=== PATIENT | female | born 1975 | race Caucasian/White ===

== ENCOUNTER → 2018-02-08 08:37 | Outpatient (CLI) | payer OTHER, MEDICAID, SELFPAY ==
[2018-02-12 14:03] LABS: C.trachomatis RNA Not detected
[2018-02-12 14:04] LABS: N.gonorrhoeae RNA Not detected
== END ==
PROVIDERS: Visit Provider Physician Assistant
DX: N89.8 Other specified noninflammatory disorders of vagina (principal); Z11.3 Encounter for screening for infections with a predominantly sexual mode of transmission
CPT/HCPCS: 87210; 87491; 87591

== ENCOUNTER → 2018-05-16 09:12 | Outpatient (CLI) | payer OTHER, MEDICAID, SELFPAY ==
--- NOTE | 2018-05-16 | DI.MG.S_ITS ---
BILATERAL DIGITAL SCREENING MAMMOGRAM 3D/2D WITH CAD WITH AUGMENTATION: 05/16/2018 CLINICAL: Routine screening. No prior exams were available for comparison. The tissue of both breasts is extremely dense, which lowers the sensitivity of mammography. Current study was also evaluated with a Computer Aided Detection (CAD) system. There is an asymmetry with coarse calcifications in the right breast posterior depth superior region seen on the mediolateral oblique view only. No other significant masses, calcifications, or other findings are seen in either breast. IMPRESSION: INCOMPLETE: NEEDS ADDITIONAL IMAGING EVALUATION The asymmetry in the right breast is indeterminate. Additional views with possible ultrasound are recommended. This exam was interpreted at Station ID: [id number]. NOTE: For mammograms, a report in lay terms will be sent to the patient. Approximately 15% of breast malignancies will not be visualized mammographically. In the management of a palpable breast mass, a negative mammogram must not discourage biopsy of a clinically suspicious lesion. Electronically Signed By: Cheryl vincent/:05/30/2018 09:23:08 letter sent: Additional Imaging Needed ACR BI-RADS Category 0: Incomplete 3340F
== END ==
PROVIDERS: PCP Family Medicine; Visit Provider Family Medicine
DX: Z12.31 Encounter for screening mammogram for malignant neoplasm of breast (principal)
CPT/HCPCS: 77063; 77067

== ENCOUNTER → 2018-09-20 18:47 | Outpatient (ROUT) | payer OTHER, SELFPAY ==
[2018-09-20 20:20] LABS: Urine N gonorrhoeae NOT DETECTED
[2018-09-20 20:26] LABS: Urine Chlamydia NOT DETECTED
== END ==
PROVIDERS: PCP Family Medicine; Visit Provider Family Medicine
DX: Z00.00 Encounter for general adult medical examination without abnormal findings (principal)
CPT/HCPCS: 87491; 87591

== ENCOUNTER → 2018-09-25 08:42 | Outpatient (CLI) | payer OTHER, SELFPAY ==
[2018-09-25 09:21] LABS: Add Manual Diff / Slide Review NO; Basophils Absolute Auto 0 /uL (0-100); Basophils Percent Auto 0.4 % (0-2); Eosinophils Absolute Auto 100 /uL (0-450); Hematocrit 41.2 % (36-46); Lymphocytes Absolute Auto 2000 /uL (1100-4500); Lymphocytes Percent Auto 32.8 % (25-40); Mean Corpuscular Hemoglobin 32.1 PG (26-34); Mean Corpuscular Volume 94.4 fL (80-100); Monocytes Absolute Auto 600 /uL (0-900); Monocytes Percent Auto 10.3 % (3-14); Neutrophils Absolute Auto 3400 /uL (1500-7000); Neutrophils Percent Auto 54.5 % (50-75); Platelet Count 374 X10^3/uL (150-400); Red Blood Cell Count 4.36 X10^6/uL (4.0-5.2); Red Cell Distribution Width 13.1 % (11.6-14.8); White Blood Cell Count 6.2 X10^3/uL (4.5-11.0)
[2018-09-25 09:49] LABS: Alanine Aminotransferase 11 IU/L (9-52); Albumin 4.8 g/dL (3.5-5.0); Albumin Globulin Ratio 1.4 (1.0-2.8); Alkaline Phosphatase 52 U/L (38-126); Aspartate Aminotransferase 26 IU/L (14-36); BUN Creatinine Ratio 17.1 (6-22); Bilirubin Total 1.1 mg/dL (0.2-1.3); Blood Urea Nitrogen 12 mg/dL (7-17); Calcium 9.5 mg/dL (8.4-10.2); Carbon Dioxide 28 mmol/L (22-32); Chloride 102 mmol/L (98-107); Cholesterol 233 mg/dL (140-199); Estimated Glomerular Filt Rate > 60.0 mL/min (>60); Globulin 3.4 g/dL (1.7-4.1); Glucose 92 mg/dL (70-100); HDL Cholesterol 78 mg/dL (40-60); HEMOLYSIS < 15 (0-50); LDL Cholesterol Calculated 142 mg/dL (<100); Potassium 4.1 mmol/L (3.4-5.1); Sodium 141 mmol/L (137-145); Total Protein 8.2 g/dL (6.3-8.2); Triglycerides 65 mg/dL (35-150)
[2018-09-25 10:22] LABS: Thyroid Stimulating Hormone 2.02 uIU/mL (0.47-4.68)
[2018-09-25 10:28] LABS: HIV 1 and 2 Antibody NEGATIVE (NEGATIVE)
[2018-09-27 16:37] LABS: Hepatitis A Antibody IgM NONREACTIVE (NONREACTIVE); Hepatitis Acute Panel Interp 0.01; Hepatitis B Core Antibody IgM NONREACTIVE (NONREACTIVE); Hepatitis B Surface Antigen NONREACTIVE (NONREACTIVE); Hepatitis C Antibody NONREACTIVE
[2018-09-27 22:31] LABS: RPR Screen Nonreactive (Nonreactive)
== END ==
PROVIDERS: PCP Family Medicine; Visit Provider Family Medicine
DX: Z00.00 Encounter for general adult medical examination without abnormal findings (principal); F32.9 Major depressive disorder, single episode, unspecified; F41.9 Anxiety disorder, unspecified; Z20.2 Contact with and (suspected) exposure to infections with a predominantly sexual mode of transmission
CPT/HCPCS: 36415; 80053; 80061; 80074; 84443; 85025; 86592; 86703

== ENCOUNTER → 2020-01-13 16:11 | Outpatient (CLI) | payer BC, SELFPAY ==
--- NOTE | 2020-01-13 | DI.MG.S_ITS ---
BILATERAL DIGITAL SCREENING MAMMOGRAM 3D/2D WITH CAD WITH AUGMENTATION: 01/13/2020 CLINICAL: Routine screening. Comparison is made to exams dated: 05/16/2018 [facility] and 10/01/2015 mammogram - [facility]. The tissue of both breasts is extremely dense, which lowers the sensitivity of mammography. Current study was also evaluated with a Computer Aided Detection (CAD) system. Bilateral breast implants are stable and intact. No significant masses, calcifications, or other findings are seen in either breast. There has been no significant interval change. IMPRESSION: NEGATIVE There is no mammographic evidence of malignancy. A 1 year screening mammogram is recommended. This exam was interpreted at Station ID: [id number]. NOTE: For mammograms, a report in lay terms will be sent to the patient. Approximately 15% of breast malignancies will not be visualized mammographically. In the management of a palpable breast mass, a negative mammogram must not discourage biopsy of a clinically suspicious lesion. Electronically Signed By: Joy garcia/stephan:01/13/2020 16:56:08 letter sent: Normal Exam ACR BI-RADS Category 1: Negative [id number]
== END ==
PROVIDERS: PCP Family Medicine; Referring Provider Family Medicine; Visit Provider Family Medicine
DX: Z12.31 Encounter for screening mammogram for malignant neoplasm of breast (principal)
CPT/HCPCS: 77063; 77067

== ENCOUNTER → 2020-10-01 10:57 | Outpatient (CLI) | payer BC, SELFPAY ==
[2020-10-01 11:41] LABS: Add Manual Diff / Slide Review NO; Basophils Absolute Auto 0 /uL (0-100); Basophils Percent Auto 0.6 % (0-2); Eosinophils Absolute Auto 200 /uL (0-450); Eosinophils Percent Auto 3.5 % (2-4); Hematocrit 39.5 % (36-46); Hemoglobin 13.4 g/dL (12.0-16.0); Lymphocytes Absolute Auto 2200 /uL (1100-4500); Lymphocytes Percent Auto 30.9 % (25-40); Mean Corpuscular HGB Conc 33.9 % (30-36); Mean Corpuscular Hemoglobin 33.1 PG (26-34); Mean Corpuscular Volume 97.5 fL (80-100); Monocytes Absolute Auto 600 /uL (0-900); Monocytes Percent Auto 8.4 % (3-14); Neutrophils Absolute Auto 4000 /uL (1500-7000); Neutrophils Percent Auto 56.6 % (50-75); Platelet Count 315 X10^3/uL (150-400); Red Blood Cell Count 4.05 X10^6/uL (4.0-5.2); Red Cell Distribution Width 13.1 % (11.6-14.8); White Blood Cell Count 7.1 X10^3/uL (4.5-11.0)
[2020-10-01 12:01] LABS: Alanine Aminotransferase 14 IU/L (<35); Albumin 4.4 g/dL (3.5-5.0); Albumin Globulin Ratio 1.4 (1.0-2.8); Alkaline Phosphatase 56 U/L (38-126); Aspartate Aminotransferase 27 IU/L (14-36); Bilirubin Total 0.7 mg/dL (0.2-1.3); Blood Urea Nitrogen 13 mg/dL (7-17); Calcium 9.1 mg/dL (8.4-10.2); Carbon Dioxide 26 mmol/L (22-32); Chloride 106 mmol/L (98-107); Estimated Glomerular Filt Rate > 60.0 mL/min (>60); Globulin 3.1 g/dL (1.7-4.1); Glucose 104 mg/dL (70-100); HEMOLYSIS 44 (0-50); Potassium 4.1 mmol/L (3.4-5.1); Sodium 138 mmol/L (137-145); Total Protein 7.5 g/dL (6.3-8.2)
[2020-10-01 12:45] LABS: UR Morphine/Opiate cutoff 300 Negative (Negative); Ur Creatinine Normal (Normal); Ur Specific Gravity Normal (Normal); Urine Amphetamines Negative (Negative); Urine Barbiturates Negative (Negative); Urine Benzodiazepines Negative (Negative); Urine Cocaine Negative (Negative); Urine MDMA Negative (Negative); Urine Methadone Negative (Negative); Urine Methamphetamines Negative (Negative); Urine Oxycodone Negative (Negative); Urine Phencyclidine Negative (Negative); Urine Tetrahydrocannabinol Negative (Negative); Urine Tricyclic Antidepressant Negative (Negative); Urine pH Normal (Normal)
[2020-10-01 13:00] LABS: Thyroid Stimulating Hormone 1.43 uIU/mL (0.47-4.68)
== END ==
PROVIDERS: PCP Family Medicine; Referring Provider Registered Nurse; Visit Provider Registered Nurse
DX: F32.9 Major depressive disorder, single episode, unspecified (principal); F90.9 Attention-deficit hyperactivity disorder, unspecified type; Z79.899 Other long term (current) drug therapy
CPT/HCPCS: 36415; 80053; 80305; 84439; 84443; 85025

== ENCOUNTER → 2021-09-28 14:13 | Outpatient (CLI) | payer OTHER, SELFPAY ==
--- NOTE | 2021-09-28 | DI.MG.S_ITS ---
BILATERAL DIGITAL SCREENING MAMMOGRAM 3D/2D WITH CAD WITH AUGMENTATION: 09/28/2021 CLINICAL: Routine screening. Comparison is made to exams dated: 01/13/2020 mammogram, 05/16/2018 mammogram - [facility], and 10/01/2015 mammogram - [facility]. The tissue of both breasts is extremely dense, which lowers the sensitivity of mammography. Current study was also evaluated with a Computer Aided Detection (CAD) system. Bilateral breast implants are stable and intact. No significant masses, calcifications, or other findings are seen in either breast. There has been no significant interval change. IMPRESSION: NEGATIVE There is no mammographic evidence of malignancy. A 1 year screening mammogram is recommended. Based on Tyrer-Cuzick model (a risk assessment model), the patient's lifetime risk is 20.7% and her 10 year risk is 4.2%. If a patient has an elevated risk, a more comprehensive evaluation should be considered and/or a referral to a genetic counselor. The [employer], [employer], and NCCN Guidelines advise the consideration of Breast MRI as an adjunct to screening mammography in patients whose Lifetime risk to develop breast cancer is 20% or higher. This exam was interpreted at Station ID: [id number]. NOTE: For mammograms, a report in lay terms will be sent to the patient. Approximately 15% of breast malignancies will not be visualized mammographically. In the management of a palpable breast mass, a negative mammogram must not discourage biopsy of a clinically suspicious lesion. Electronically Signed By: Jonn Jensen acr/stephan:09/28/2021 15:46:20 letter sent: Normal Exam ACR BI-RADS Category 1: Negative 3341F
== END ==
PROVIDERS: PCP Family Medicine; Referring Provider Family Medicine; Visit Provider Family Medicine
DX: Z12.31 Encounter for screening mammogram for malignant neoplasm of breast (principal)
CPT/HCPCS: 77063; 77067

== ENCOUNTER → 2021-10-18 07:19 | Outpatient (CLI) | payer OTHER, SELFPAY ==
--- NOTE | 2021-10-18 07:21 | DI.US.S_ITS ---
PROCEDURE: US PELVIC COMPLETE INDICATIONS: FIBROIDS TECHNIQUE: Real-time scanning was performed of the pelvic organs, with image documentation. Additional endovaginal scanning was necessary due to incomplete visualization of the adnexal and endometrial structures by transabdominal scanning. COMPARISON: None. FINDINGS: Uterus: Uterus is anteverted and normal in size at 7.9 x 5.1 x 4.2 cm. The myometrium is heterogeneous. The endometrium measures 10.1 mm combined thickness. Within the mid anterior sub mucosal region of the uterus there is a 20 x 19 x 21 mm focus of decreased echogenicity. Within the right anterior submucosal region there is a 10 x 6 x 12 mm focus of similar echogenicity. Ovaries: The right ovary measures 2.1 x 1.6 x 2.1 cm. The left ovary measures 2.7 x 2.4 by 2.7 cm. There is a complex cyst within the left ovary measuring 18 x 19 x 20 mm. . Less than 12 follicles can be seen in each ovary. No adnexal masses are seen. Other: No pathologic free abdominal or pelvic fluid. IMPRESSION: Uterine fibroids as above. Complex left ovarian cyst as above. We strive to produce accurate, complete, and clear reports of imaging services. To assist us in improving patient care, this report was composed using standard report templates and voice recognition software. Therefore, it may contain abnormal punctuation, insertions and/or omissions. Occasional wrong-word or sound-alike substitutions may occur. Though we review the report and make efforts to correct it, we do recommend that the report be read carefully in proper context to recognize any text inaccuracies. Dictated by: Kirti Vanessa M.D. on 10/18/2021 at 11:48 Approved by: Kirti Vanessa M.D. on 10/18/2021 at 12:13
== END ==
PROVIDERS: PCP Family Medicine; Referring Provider Family Medicine; Visit Provider Family Medicine
DX: N94.6 Dysmenorrhea, unspecified (principal); D25.0 Submucous leiomyoma of uterus; N83.292 Other ovarian cyst, left side
CPT/HCPCS: 76830; 76856

== ENCOUNTER → 2021-10-24 10:12 | Outpatient (CLI) | payer OTHER, SELFPAY ==
[2021-10-24 11:39] LABS: Cancer Antigen 125 < 5.5 U/mL (0-35)
[2021-10-24 11:50] LABS: Cholesterol 212 mg/dL (140-199); HDL Cholesterol 89 mg/dL (40-60); LDL Cholesterol Calculated 113 mg/dL (<100); Triglycerides 51 mg/dL (35-150)
== END ==
PROVIDERS: Obstetrics & Gynecology; PCP Family Medicine; Referring Provider Family Medicine; Visit Provider Family Medicine
DX: N83.299 Other ovarian cyst, unspecified side (principal); A63.0 Anogenital (venereal) warts; E78.5 Hyperlipidemia, unspecified; F32.9 Major depressive disorder, single episode, unspecified; F90.9 Attention-deficit hyperactivity disorder, unspecified type
CPT/HCPCS: 36415; 80061; 86304

== ENCOUNTER → 2021-11-01 09:16 | Outpatient (CLI) | payer OTHER, SELFPAY ==
[2021-11-01 12:39] LABS: COVID19 -Nasal RAPID Negative (Negative)
== END ==
PROVIDERS: PCP Family Medicine; Visit Provider Obstetrics & Gynecology
DX: Z20.822 Contact with and (suspected) exposure to COVID-19 (principal); Z01.812 Encounter for preprocedural laboratory examination
CPT/HCPCS: 87635

== ENCOUNTER 2021-11-02 14:09 | Day surgery (SDC) | payer OTHER, SELFPAY ==
[2021-11-02] VITALS (7 sets, daily range): BP systolic 104–128; BP diastolic 70–82; PULSE 74–89; RESP 11–16; TEMP 36.4–36.8; O2SAT 97–100; BMI 26.1
--- NOTE | 2021-11-02 | PATH_ITS ---
[facility] Accession Number: [id number] . 01 Material submitted: . PART A: uterus - UTERUS, LEFT FALLOPIAN TUBE AND LEFT OVARY, RIGHT FALLOPIAN TUBE PART B: cervix - LEEP CONE BIOPSY OF CERVIX . 01 Diagnosis: A. Uterus, Left Fallopian Tube and Left Ovary, Right Fallopian Tube, Supracervical Hysterectomy, Left Salingo-oophorectomy, and Right Salpingectomy (Disrupted Weight 49 grams): Proliferative endometrium; negative for glandular hyperplasia, cytologic atypia, or malignancy. Myometrium involved by a benign leiomyoma (22 mm); negative for atypia or malignancy. Uterine serosa with no significant histomorphologic abnormality. Longer fallopian tube, complete cross-sections; negative for atypia or malignancy. [place] fallopian tube, complete cross-sections; one benign paratubal cyst (6 mm); negative for atypia or malignancy. Ovary with a benign hemorrhagic corpus luteum cyst and an adjacent cystic follicle. . B. LEEP Cone Biopsy of Cervix: Low-grade squamous intraepithelial lesion / MARIELENA-1. Low-grade dysplasia is focally present at the electrocauterized ectocervical margin. One focus of high-grade squamous intraepithelial lesion / MARIELENA-2 present within endocervical glands. The intact, apparent endocervical margin is negative for dysplasia; tissue fragmentation and electrocautery artifact is obscuring. No invasive tumor identified. [facility] 11/04/2021 1458 Local . 01 Electronically signed: . Fidelina Rodriguez MD, Pathologist NPI- [id number] . 01 Gross description: . A. Received in formalin, labeled with the patient's name and uterus, left fallopian tube and left ovary, right fallopian tube, and consists of a disrupted, fragmented uterus weighing 49 g and aggregating to 8.6 x 5.1 x 2.9 cm, with two unoriented attached fallopian tubes (6.0 x 1.0 cm, 5.3 x 0.7 cm, respectively), and a single detached salcido cerebriform ovary measuring 2.8 x 1.6 x 1.1 cm and weighing 3 g. No cervix is attached, and the endometrial cavity cannot be identified; however, the possible endometrium is salcido and velvety and averages approximately 0.1 cm in thickness. The thickness of the myometrium cannot be determined. The serosa is salcido, smooth with an area of pinpoint hemorrhages measuring 0.5 cm in greatest dimension. Serial sectioning reveals a white, whorled, well circumscribed nodule located subserosally and measuring 2.2 cm in greatest dimension. No additional lesions are identified. The longer fallopian tube has smooth congested serosa with no cystic structures identified. Sectioning reveals an unremarkable stellate lumen. The shorter fallopian tube has smooth congested serosa with an attached pedunculated cystic structure measuring 0.6 cm in greatest dimension. Serial sectioning reveals an unremarkable stellate lumen. Serial sectioning the ovary reveals an unremarkable physiologic cut surface. business center representative sections are submitted as follows: A1: Possible endometrium. A2: Serosa with areas of pinpoint hemorrhage. A3: Crossing [place] nodule. A4: Longer fallopian tube to include entire fimbriae and business center representative cross sections. A5: [place] fallopian tube to include entire fimbriae and business center representative cross sections. A6: Crossing Guard ovary. B. Received in formalin, labeled with the patient's name and LEEP cone biopsy of cervix, and consists of multiple unoriented fragments of cervix aggregating to 2.3 x 1.7 x 0.5 cm. The ectocervix is salcido and finely granular with no intact cervical os identified. The presumed endocervical margin is inked orange while the remaining stromal margins are inked blue. The specimen is serially sectioned and submitted entirely in cassettes B1-B4. ([id number]) /[facility] 11/04/2021 0321 Local . 01 Pathologist provided ICD-10: N87.0, D25.9, R10.2, N93.9, N83.292, N94.6 . 01 CPT . 399122, [id number] Specimen Comment: A courtesy copy of this report has been sent to [phone] Performed at: 01 [facility] [address], [place], [place] [id number] MD Maico Skaggs MD Phone: [phone]
[2021-11-02] MEDS: LACTATED RINGERS 1,000 ML 100 ML IV (14:56)
--- NOTE | 2021-11-02 16:00 | PM.PREOP ---
Pre-operative Note COVID-19 COVID-19 status: Negative Result date/Date tested (Pos, Neg/Pending): 11/01/21 Criteria for continued procedure: Non-surgical alternatives not available or appropriate per current SOC Interval Note History & Physical reviewed/Exam performed by Physician: Yes Changes to H&P: No H&P completed within 30 days and has changed as indicated here:: 11/01/21
[2021-11-02] MEDS: CEFAZOLIN 2 GM IN 0.9 % NACL 100 ML IV (16:55)
--- NOTE | 2021-11-02 17:14 | SUR.OPER ---
Lithotomy on padded OR bed. [place] Pad Positioner under torso. Head on pillow, arms padded and tucked at sides. Legs secured in padded yellow fins stirrups. POSITION APPROVED BY SURGEON AND ANESTHESIA
[2021-11-02] MEDS: BUPIVACAINE 0.5% W/ EPI (PF) 30 ML VIAL INJ (17:19)
--- NOTE | 2021-11-02 18:06 | P.OP_ITS ---
Operative Date/Time/Diagnoses Date of procedure: 11/02/21 Time of procedure: 18:06 Pre-op diagnosis: Pelvic pain Fibroid uterus Post-op diagnosis: same Procedure & Clinicians Procedure: Procedures Operation Date: 11/02/21 15:30 Actual Procedure Side Surgeon p Laparoscopic Supracervical Hysterectomy w. left salpingo-oophorectomy & Right salpingectomy MD ayesha Kay LEEP Procedure MD ayesha Kay Conization Of Cervix - Cone Biopsy Ayse Bueno MD Indications: Pelvic pain Fibroid uterus Surgeon: Ayse Bueno It Lead: Jaye Daniel Anesthesia Type: General and Local Operative Notes Findings: Seven week size multi fibroid uterus, largest fibroid in the lower uterine segment Normal tubes and ovary Normal liver and gallbladder Appendix previously removed Closure Type: primary Specimen(s): left tube, right tube and uterus Applied: catheter (Removed at the end of the case) Estimated blood loss (mL): 75 Blood products transfused: none Procedure in detail: The patient was taken to the operating room where she was placed in the dorsal supine position. After adequate general endotracheal anesthesia was achieved, she was placed in the dorsal lithotomy position, and prepped and draped in the usual sterile fashion. A timeout was performed. A bivalve speculum was placed into the vagina and the anterior lip of the cervix grasped with a single-tooth tenaculum. The cervical os was sequentially dilated until the ZUMI uterine manipulator could pass easily into the endometrial cavity. The single-tooth tenaculum was removed from the anterior lip of the cervix, and the bivalve speculum was removed from the vagina. Attention was then turned to the abdomen where 6 mL of half percent Marcaine with epinephrine were injected in the umbilical fold. A 5 mm incision was made. The Verees needle was placed into the peritoneal cavity, and its placement confirmed by aspiration and drop test. The Verees needle was removed. A 5 mm trocar was placed without difficulty. 2 other incisions were made 4 cm lateral to the umbilicus after 5 mL of half percent Marcaine with epinephrine were injected. These were 5 mm incisions. Two 5 mm trocars were placed under direct visualization. The right tube was grasped with an atraumatic grasper. Using the Powerseal the mesosalpinx was cauterized and cut all the way down to the cornua of the uterus. The cornua of the uterus was then grasped with an atraumatic grasper. The utero-ovarian ligaments were cauterized and cut. The round ligament and broad ligament was cauterized and cut with the Powerseal. Hemostasis was achieved. The bladder flap was created using the Powerseal with cautery and cut skilled nursing across. The uterine arteries on the right side were extensively cauterized with the Powerseal. All of this was repeated on the left side. The remainder of the bladder flap was created using the Powerseal, and the bladder taken down off the lower uterine segment and cervix. Using the Endoloop, the cervix was amputated from the uterus 2 cm above the uterosacral ligaments, after the ZUMI uterine manipulator was removed from the uterus. There was a small amount of bleeding noted from the posterior edge of the cervix, and this was cauterized for hemostasis. A sponge stick was placed into the vagina. 6 mL of half percent Marcaine with epinephrine were injected above the pubic symphysis. A 12 mm trocar was placed. An Endobag was placed through the suprapubic trocar and the uterus and tubes were placed into the Endobag. The trocar was removed. The edges of the endobag were brought up through the skin. The Rocael was placed into the endobag. The uterus was hand morcellated in approximately 8 pieces. The Endobag and Rocael were removed from the peritoneal cavity. The fascia on the suprapubic incision was closed with 0 Vicryl in a running fashion. The abdomen was re-insufflated. The pelvis was copiously irrigated with warm normal saline. No bleeding was noted. 20 cc of 0.2% ropivacaine were placed over the pedicles. The instruments were removed from the abdomen. The CO2 was allowed to escape. All of the incisions were closed with 4-0 Biosyn in a subcuticular fashion. Two simple interrupted sutures with 3-0 Vicryl were placed in the subcutaneous layer. Steri-Strips and Allevyn dressings were placed. The moistened sponge stick was removed from the vagina. Sponge, lap, and instrument counts were correct x-2. The patient tolerated the procedure well, was taken to PACU in stable condition. Complications: none Post-operative Condition: stable Disposition: PACU Plan for aftercare: Home after recovery
[2021-11-02] MEDS: OXYCODONE/ACETAMINOPHEN 5/325 TABLET 1 TAB PO (18:45)
[2021-11-02] MEDS: ACETAMINOPHEN 325 MG TABLET 975 MG PO (18:46)
== END 2021-11-02 19:15 | disposition home or self-care (01) ==
LOC: OR 14:10 → AC 14:15
PROVIDERS: PCP Family Medicine; Referring Provider Obstetrics & Gynecology; Visit Provider Obstetrics & Gynecology
PROC: 0UT94ZL Resection of Uterus, Supracervical, Percutaneous Endoscopic Approach (ICD-10-PCS; CPT 58542; principal; 2021-11-02 15:30)
PROC: 0UBC7ZZ Excision of Cervix, Via Natural or Artificial Opening (ICD-10-PCS; CPT 57522; 2021-11-02 15:30)
PROC: 0UBC7ZZ Excision of Cervix, Via Natural or Artificial Opening (ICD-10-PCS; CPT 57520; 2021-11-02 15:30)
DX: R10.2 Pelvic and perineal pain (principal); N93.9 Abnormal uterine and vaginal bleeding, unspecified; D25.1 Intramural leiomyoma of uterus; D25.9 Leiomyoma of uterus, unspecified; N83.8 Other noninflammatory disorders of ovary, fallopian tube and broad ligament; N83.12 Corpus luteum cyst of left ovary; N87.0 Mild cervical dysplasia; N94.6 Dysmenorrhea, unspecified
CPT/HCPCS: 58542; J0690; J1100; J1885; J2250; J2405; J2704; J2795; J3010

== ENCOUNTER 2021-11-12 14:38 | Emergency (ER) | payer OTHER, SELFPAY ==
[2021-11-12 14:47] VITALS: BP 129/75; PULSE 87; RESP 14; TEMP 36.6; O2SAT 100; BMI 25.8
[2021-11-12] MEDS: ONDANSETRON 4 MG/2 ML INJ IV (15:22)
[2021-11-12 15:29] LABS: Add Manual Diff / Slide Review NO; Basophils Absolute Auto 0 /uL (0-100); Basophils Percent Auto 0.3 % (0-2); Eosinophils Absolute Auto 100 /uL (0-450); Eosinophils Percent Auto 1.4 % (2-4); Hematocrit 39.1 % (36-46); Hemoglobin 13.8 g/dL (12.0-16.0); Lymphocytes Absolute Auto 1800 /uL (1100-4500); Lymphocytes Percent Auto 17.3 % (25-40); Mean Corpuscular HGB Conc 35.4 % (30-36); Mean Corpuscular Hemoglobin 33.1 PG (26-34); Mean Corpuscular Volume 93.5 fL (80-100); Monocytes Absolute Auto 1000 /uL (0-900); Monocytes Percent Auto 9.4 % (3-14); Neutrophils Absolute Auto 7600 /uL (1500-7000); Neutrophils Percent Auto 71.6 % (50-75); Platelet Count 318 X10^3/uL (150-400); Red Blood Cell Count 4.18 X10^6/uL (4.0-5.2); Red Cell Distribution Width 12.4 % (11.6-14.8); White Blood Cell Count 10.7 X10^3/uL (4.5-11.0)
[2021-11-12 15:36] LABS: Alanine Aminotransferase 11 IU/L (<35); Albumin 4.8 g/dL (3.5-5.0); Albumin Globulin Ratio 1.4 (1.0-2.8); Alkaline Phosphatase 60 U/L (38-126); Aspartate Aminotransferase 21 IU/L (14-36); BUN Creatinine Ratio 15.1 (6-22); Bilirubin Total 0.6 mg/dL (0.2-1.3); Blood Urea Nitrogen 14 mg/dL (7-17); Calcium 9.5 mg/dL (8.4-10.2); Carbon Dioxide 29 mmol/L (22-32); Chloride 100 mmol/L (98-107); Estimated Glomerular Filt Rate > 60 mL/min (>60); Globulin 3.4 g/dL (1.7-4.1); Glucose 117 mg/dL (70-100); HEMOLYSIS < 15 (0-50); Potassium 4.2 mmol/L (3.4-5.1); Sodium 138 mmol/L (137-145); Total Protein 8.2 g/dL (6.3-8.2)
--- NOTE | 2021-11-12 16:40 | DI.CT.S_ITS ---
PROCEDURE: CT ABDOMEN PELVIS W CON INDICATIONS: Vaginal bleeding post hysterectomy. TECHNIQUE: After the administration of oral and IV contrast, axial sections were acquired from the lung bases to the pubic symphysis. Coronal and sagittal reformats were performed. For radiation dose reduction, the following was used: automated exposure control, adjustment of mA and/or kV according to patient size. COMPARISON: [facility], , PELVIC COMPLETE, 10/18/2021, 7:27. FINDINGS: Image quality: Excellent. Lung bases: Unremarkable. Heart: No significant findings. ABDOMEN: Liver: A low-density lesion can be seen within the left liver measuring 7 mm, as on series 2 image 23. It is too small to definitively characterize. Gallbladder: The gallbladder is largely collapsed at the time of this study. Biliary ducts: Unremarkable. Pancreas: Unremarkable. Spleen: Unremarkable. Adrenal Glands: Unremarkable. Kidneys and Ureters: Unremarkable. Stomach and Bowel: Stomach, small bowel loops, and colon are unremarkable. There is mild distal colonic diverticulosis, without findings of active diverticulitis. Peritoneum: No abnormal intraperitoneal fluid. No free air. Ventral Wall: No hernia. Abdominal Nodes: No retroperitoneal or mesenteric adenopathy by size criteria. Vessels: Aorta and inferior vena cava are normal in size. PELVIS: Pelvic Organs: There is apparent supracervical hysterectomy change seen. No significant postoperative complication can be seen. No significant abnormal inflammatory change. No regional abscess is seen. Bladder: Unremarkable. Pelvic Nodes: No enlarged lymph nodes. Miscellaneous: No inguinal hernias are seen. Bones: Unremarkable. IMPRESSION: Status post apparent supracervical hysterectomy, without complication identified. Incidental note is made of: Likely left liver cyst Diverticulosis, without active diverticulitis Dictated by: Davidson Pena M.D. on 11/12/2021 at 17:09 Approved by: Davidson Pena M.D. on 11/12/2021 at 17:12
--- NOTE | 2021-11-12 16:40 | ED.FEMALEGU ---
HPI - Female Genitourinary <Renae Champagne DO - Last Filed: 11/13/21 07:12> General Chief complaint: Vaginal Bleeding Stated complaint: Post surgical bleeding Time Seen by Provider: 11/12/21 16:13 Source: patient Mode of arrival: Ambulatory History of Present Illness HPI Narrative: Patient is a 46-year-old female postop hysterectomy 10 days presenting today with vaginal bleeding and lightheadedness. She denies any chest pain palpitations or passing out. She says that she has had scant vaginal bleeding for last 3 days however today as she did fill pain the liner. She noted some blood when she urinated no painful or frequent urination. No fever chills. No real abdominal pain. But was concerned due to vaginal bleeding. Related Data Home Medications Medication Instructions Recorded Confirmed bupropion HCl 150 mg 24 hr tablet, 300 mg PO QAM 11/02/21 11/02/21 extended release Previous Rx's Medication Instructions Recorded dextroamphetamine-amphetamine ER 20 mg PO DAILY #90 caps 07/05/21 20 mg 24hr capsule,extend release (Adderall XR) oxycodone 5 mg tablet 5 mg PO Q4H PRN pain #20 tabs 11/02/21 zolpidem 10 mg tablet (Ambien) 10 mg PO BEDTIME PRN insomnia #30 11/03/21 tabs Allergies Allergy/AdvReac Type Severity Reaction Status Date / Time No Known Drug Allergies Allergy Verified 11/12/21 14:46 <Wendy Elizabeth MD - Last Filed: 11/12/21 20:26> History of Present Illness HPI Narrative: Patient is a 46-year-old female postop hysterectomy and LEEP procedure 10 days presenting today with vaginal bleeding and lightheadedness. She denies any chest pain palpitations or passing out. She says that she has had scant vaginal bleeding for last 3 days however today as she did fill pain the liner. She noted some blood when she urinated no painful or frequent urination. No fever chills. No real abdominal pain. But was concerned due to vaginal bleeding. Review of Systems <Renae Champagne DO - Last Filed: 11/13/21 07:12> Review of Systems Narrative: GENERAL: Denies chills, fatigue, malaise, fever, sweats, travel HEENT: Denies sinus pain, ear pain, sore throat, difficulty swallowing, neck pain RESPIRATORY: Denies dyspnea, cough, wheezing, hemoptysis, sputum. CARDIOVASCULAR: Denies chest pain, palpitations, orthopnea, edema GASTROINTESTINAL: Denies nausea, vomiting, abdominal pain, diarrhea, constipation, melena. : Denies dysuria, frequency, incontinence, hematuria, urinary retention, flank pain. 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 12 point review of systems is negative except for those stated above and HPI Patient History <Renae Champagne DO - Last Filed: 11/13/21 07:12> Medical History Hyperlipidemia Surgical History History of appendectomy alcohol intake frequency: 3 or more drinks per day Substance Use Type: does not use Exam <Renae Champagne DO - Last Filed: 11/13/21 07:12> Initial Vital Signs Initial Vital Signs: Vital Signs Temperature 97.9 F 11/12/21 14:47 Pulse Rate 87 11/12/21 14:47 Respiratory Rate 14 11/12/21 14:47 Blood Pressure 129/75 11/12/21 14:47 Pulse Oximetry 100 11/12/21 14:47 Oxygen Delivery Method 11/12/21 14:47 GENERAL: Alert pleasant well-appearing 46-year-old female HEENT: Head atraumatic,EOMI, pupils reactive, face symmetric, [moist] mucous membranes CARDIOVASCULAR: Regular rate and rhythm without murmurs, rubs or gallops. RESPIRATORY: Breath sounds equal bilaterally, no wheezes rales or rhonchi. ABDOMEN: Soft, nontender. Normoactive bowel sounds all 4 quadrants. No guarding or rebound. EXTREMITIES: Normal range of motion, no clubbing or edema. Neurovascularly intact NEUROLOGICAL: Alert and oriented x4. Moving all extremities SKIN: Warm, dry, no laceration, no petechiae, no rashes or lesions. <Wendy Elizabeth MD - Last Filed: 11/12/21 20:26> Initial Vital Signs Initial Vital Signs: Vital Signs Temperature 97.9 F 11/12/21 14:47 Pulse Rate 87 11/12/21 14:47 Respiratory Rate 14 11/12/21 14:47 Blood Pressure 129/75 11/12/21 14:47 Pulse Oximetry 100 11/12/21 14:47 Oxygen Delivery Method 11/12/21 14:47 GENERAL: Alert pleasant well-appearing 46-year-old female HEENT: Head atraumatic,EOMI, pupils reactive, face symmetric, [moist] mucous membranes CARDIOVASCULAR: Regular rate and rhythm without murmurs, rubs or gallops. RESPIRATORY: Breath sounds equal bilaterally, no wheezes rales or rhonchi. ABDOMEN: Soft, nontender. Normoactive bowel sounds all 4 quadrants. No guarding or rebound. EXTREMITIES: Normal range of motion, no clubbing or edema. Neurovascularly intact NEUROLOGICAL: Alert and oriented x4. Moving all extremities SKIN: Warm, dry, no laceration, no petechiae, no rashes or lesions. Pelvic exam: Suprapubic Steri-Strips removed and incision is healing beautifully External genitalia is unremarkable Speculum was gently placed. Cervix has appropriate healing from the LEEP procedure. There is an area at 5:00 a.m. and 11:00 a.m. that have some point bleeding. Monsel's solution applied to both sites and bleeding is controlled. Course <Renae Champagne DO - Last Filed: 11/13/21 07:12> Orders Ordered: Discontinued Medications Sodium Chloride (Normal Saline 0.9%) 1,000 mls @ 1,000 mls/hr IV BOLUS ONE Stop: 11/12/21 16:13 Last Infusion: 11/12/21 19:52 Dose: 1,000 mls/hr Documented By: Admin: 11/12/21 17:14 Dose: 1,000 mls/hr Documented By: BEVERLEY Ondansetron HCl (Ondansetron 4 Mg/2 Ml Inj) 4 mg IV NOW ONE Stop: 11/12/21 15:15 Last Admin: 11/12/21 15:22 Dose: 4 mg Documented By: MEGAN Vital Signs Vital signs: Vital Signs - 8 hr 11/12/21 14:47 Temperature 97.9 F Pulse Rate 87 Respiratory Rate 14 Blood Pressure 129/75 Pulse Oximetry 100 Oxygen Delivery Method Room Air <Wendy Elizabeth MD - Last Filed: 11/12/21 20:26> Orders Ordered: Discontinued Medications Sodium Chloride (Normal Saline 0.9%) 1,000 mls @ 1,000 mls/hr IV BOLUS ONE Stop: 11/12/21 16:13 Last Infusion: 11/12/21 19:52 Dose: 1,000 mls/hr Documented By: Admin: 11/12/21 17:14 Dose: 1,000 mls/hr Documented By: BEVERLEY Ondansetron HCl (Ondansetron 4 Mg/2 Ml Inj) 4 mg IV NOW ONE Stop: 11/12/21 15:15 Last Admin: 11/12/21 15:22 Dose: 4 mg Documented By: MEGAN Vital Signs Vital signs: Vital Signs - 8 hr 11/12/21 14:47 Temperature 97.9 F Pulse Rate 87 Respiratory Rate 14 Blood Pressure 129/75 Pulse Oximetry 100 Oxygen Delivery Method Room Air MDM - Female Genitourinary <Renae Champagne DO - Last Filed: 11/13/21 07:12> Lab Data Result diagrams: 11/12/21 15:00 11/12/21 15:00 Labs: Lab Results 11/12/21 11/12/21 11/12/21 Range/Units 15:00 15:00 15:00 WBC 10.7 (4.5-11.0) X10^3/uL RBC 4.18 (4.0-5.2) X10^6/uL Hgb 13.8 (12.0-16.0) g/dL Hct 39.1 (36-46) % MCV 93.5 (80-100) fL MCH 33.1 (26-34) PG MCHC 35.4 (30-36) % RDW 12.4 (11.6-14.8) % Plt Count 318 (150-400) X10^3/uL Neut % (Auto) 71.6 (50-75) % Lymph % (Auto) 17.3 L (25-40) % [place] % (Auto) 9.4 (3-14) % Eos % (Auto) 1.4 L (2-4) % Baso % (Auto) 0.3 (0-2) % Neut # (Auto) 7600 H (0119-7165) /uL Lymph # (Auto) 1800 (3012-2129) /uL [place] # (Auto) 1000 H (0-900) /uL Eos # (Auto) 100 (0-450) /uL Baso # (Auto) 0 (0-100) /uL Sodium 138 (137-145) mmol/L Potassium 4.2 (3.4-5.1) mmol/L Chloride 100 (98-107) mmol/L Carbon Dioxide 29 (22-32) mmol/L BUN 14 (7-17) mg/dL Creatinine 0.93 (0.52-1.04) mg/dL Estimated GFR > 60 (>60) mL/min BUN/Creatinine Ratio 15.1 (6-22) Glucose 117 H (70-100) mg/dL Calcium 9.5 (8.4-10.2) mg/dL Total Bilirubin 0.6 (0.2-1.3) mg/dL AST 21 (14-36) IU/L ALT 11 (<35) IU/L Alkaline Phosphatase 60 (38-126) U/L Total Protein 8.2 (6.3-8.2) g/dL Albumin 4.8 (3.5-5.0) g/dL Globulin 3.4 (1.7-4.1) g/dL Albumin/Globulin Ratio 1.4 (1.0-2.8) Urine RBC (0-5/HPF) Urine WBC (0-5/HPF) Ur Squamous Epith Cells (0-5/HPF) Urine Bacteria (None) Urine Mucus (Negative) Ur Culture Indicated? Blood Type O Positive Antibody Screen Negative 11/12/21 Range/Units 17:00 WBC (4.5-11.0) X10^3/uL RBC (4.0-5.2) X10^6/uL Hgb (12.0-16.0) g/dL Hct (36-46) % MCV (80-100) fL MCH (26-34) PG MCHC (30-36) % RDW (11.6-14.8) % Plt Count (150-400) X10^3/uL Neut % (Auto) (50-75) % Lymph % (Auto) (25-40) % [place] % (Auto) (3-14) % Eos % (Auto) (2-4) % Baso % (Auto) (0-2) % Neut # (Auto) (2538-8004) /uL Lymph # (Auto) (4846-9447) /uL [place] # (Auto) (0-900) /uL Eos # (Auto) (0-450) /uL Baso # (Auto) (0-100) /uL Sodium (137-145) mmol/L Potassium (3.4-5.1) mmol/L Chloride (98-107) mmol/L Carbon Dioxide (22-32) mmol/L BUN (7-17) mg/dL Creatinine (0.52-1.04) mg/dL Estimated GFR (>60) mL/min BUN/Creatinine Ratio (6-22) Glucose (70-100) mg/dL Calcium (8.4-10.2) mg/dL Total Bilirubin (0.2-1.3) mg/dL AST (14-36) IU/L ALT (<35) IU/L Alkaline Phosphatase (38-126) U/L Total Protein (6.3-8.2) g/dL Albumin (3.5-5.0) g/dL Globulin (1.7-4.1) g/dL Albumin/Globulin Ratio (1.0-2.8) Urine RBC 10-30/hpf H (0-5/HPF) Urine WBC 10-30/hpf H (0-5/HPF) Ur Squamous Epith Cells 0-1 /hpf (0-5/HPF) Urine Bacteria None seen (None) Urine Mucus 1+ H (Negative) Ur Culture Indicated? Specimen cultured Blood Type Antibody Screen Urine Dip Bedside Urine Glucose Negative Bedside Urine Bilirubin - Negative Bedside Urine Ketone - Negative Urine Specific [place] 1.015 Bedside Urine Occult Blood +++ Bedside Urine pH 6.0 Bedside Urine Protein + 30 Bedside Urine Leukocytes + [address] scan - abdomen/pelvis: Radiologist's Impression: [address] [place] [id number] Scan Report Signed Patient: Dede Tian MR#: [id number] : 1975 Acct:[id number] Age/Sex: 46 / F Date of Service: 11/12/21 Loc: ED Accession Number: [id number] ?? Procedure: CT abdomen pelvis w con Ordering Provider: Botnick,Renae D.O. PROCEDURE:? CT ABDOMEN PELVIS W CON ? INDICATIONS:? Vaginal bleeding post hysterectomy. ? TECHNIQUE:? After the administration of oral and IV contrast, axial sections were acquired from the lung bases to the pubic symphysis.? Coronal and sagittal reformats were performed.? For radiation dose reduction, the following was used:? automated exposure control, adjustment of mA and/or kV according to patient size. ? COMPARISON:? [facility], , PELVIC COMPLETE, 10/18/2021, 7:27. ? FINDINGS:? Image quality:? Excellent.? ? Lung bases:? Unremarkable.? ? Heart:? No significant findings. ? ? ABDOMEN: Liver:? A low-density lesion can be seen within the left liver measuring 7 mm, as on series 2 image 23. It is too small to definitively characterize.? Gallbladder:? The gallbladder is largely collapsed at the time of this study.? ? ? Biliary ducts:? Unremarkable.? ? Pancreas:? Unremarkable.? ? Spleen:? Unremarkable.? ? Adrenal Glands:? Unremarkable.? ? Kidneys and Ureters:? Unremarkable.? ? ? Stomach and Bowel:? Stomach, small bowel loops, and colon are unremarkable.? There is mild distal colonic diverticulosis, without findings of active diverticulitis. Peritoneum:? No abnormal intraperitoneal fluid.? No free air.? ? Ventral Wall: ? No hernia.? Abdominal Nodes:? No retroperitoneal or mesenteric adenopathy by size criteria.? Vessels:? Aorta and inferior vena cava are normal in size.? ? PELVIS: Pelvic Organs:? There is apparent supracervical hysterectomy change seen.? No significant postoperative complication can be seen.? No significant abnormal inflammatory change.? No regional abscess is seen. Bladder:? Unremarkable.? ? Pelvic Nodes: No enlarged lymph nodes.? Miscellaneous: No inguinal hernias are seen. ? ? ? Bones:? Unremarkable.? IMPRESSION:? ? Status post apparent supracervical hysterectomy, without complication identified. ? Incidental note is made of: Likely left liver cyst Diverticulosis, without active diverticulitis ? Dictated by: Davidson Pena M.D. on 11/12/2021 at 17:09 ? ? Approved by: Davidson Pena M.D. on 11/12/2021 at 17:12 ? MDM Narrative Medical decision making narrative: The patient overall appears well status post hysterectomy with some mild bleeding she is not anemic hemodynamically stable. CT is negative. Patient is and Dr. Elizabeth for pelvic exam. 46-year-old woman 10 days postop laparoscopic vaginal hysterectomy, oophorectomy and LEEP procedure. She is having some minor bleeding from the cervix. Monsel's is applied without complication and the bleeding is controlled. Anticipated course of resolution as well as discharge from the Monsel's was reviewed with patient. She is safe for home discharge and will follow up with her previously scheduled postoperative appointment. <Wendy Elizabeth MD - Last Filed: 11/12/21 20:26> Lab Data Labs: Lab Results 11/12/21 11/12/21 11/12/21 Range/Units 15:00 15:00 15:00 WBC 10.7 (4.5-11.0) X10^3/uL RBC 4.18 (4.0-5.2) X10^6/uL Hgb 13.8 (12.0-16.0) g/dL Hct 39.1 (36-46) % MCV 93.5 (80-100) fL MCH 33.1 (26-34) PG MCHC 35.4 (30-36) % RDW 12.4 (11.6-14.8) % Plt Count 318 (150-400) X10^3/uL Neut % (Auto) 71.6 (50-75) % Lymph % (Auto) 17.3 L (25-40) % [place] % (Auto) 9.4 (3-14) % Eos % (Auto) 1.4 L (2-4) % Baso % (Auto) 0.3 (0-2) % Neut # (Auto) 7600 H (5051-3965) /uL Lymph # (Auto) 1800 (5485-4494) /uL [place] # (Auto) 1000 H (0-900) /uL Eos # (Auto) 100 (0-450) /uL Baso # (Auto) 0 (0-100) /uL Sodium 138 (137-145) mmol/L Potassium 4.2 (3.4-5.1) mmol/L Chloride 100 (98-107) mmol/L Carbon Dioxide 29 (22-32) mmol/L BUN 14 (7-17) mg/dL Creatinine 0.93 (0.52-1.04) mg/dL Estimated GFR > 60 (>60) mL/min BUN/Creatinine Ratio 15.1 (6-22) Glucose 117 H (70-100) mg/dL Calcium 9.5 (8.4-10.2) mg/dL Total Bilirubin 0.6 (0.2-1.3) mg/dL AST 21 (14-36) IU/L ALT 11 (<35) IU/L Alkaline Phosphatase 60 (38-126) U/L Total Protein 8.2 (6.3-8.2) g/dL Albumin 4.8 (3.5-5.0) g/dL Globulin 3.4 (1.7-4.1) g/dL Albumin/Globulin Ratio 1.4 (1.0-2.8) Urine RBC (0-5/HPF) Urine WBC (0-5/HPF) Ur Squamous Epith Cells (0-5/HPF) Urine Bacteria (None) Urine Mucus (Negative) Ur Culture Indicated? Blood Type O Positive Antibody Screen Negative 11/12/21 Range/Units 17:00 WBC (4.5-11.0) X10^3/uL RBC (4.0-5.2) X10^6/uL Hgb (12.0-16.0) g/dL Hct (36-46) % MCV (80-100) fL MCH (26-34) PG MCHC (30-36) % RDW (11.6-14.8) % Plt Count (150-400) X10^3/uL Neut % (Auto) (50-75) % Lymph % (Auto) (25-40) % [place] % (Auto) (3-14) % Eos % (Auto) (2-4) % Baso % (Auto) (0-2) % Neut # (Auto) (0321-2198) /uL Lymph # (Auto) (2384-2102) /uL [place] # (Auto) (0-900) /uL Eos # (Auto) (0-450) /uL Baso # (Auto) (0-100) /uL Sodium (137-145) mmol/L Potassium (3.4-5.1) mmol/L Chloride (98-107) mmol/L Carbon Dioxide (22-32) mmol/L BUN (7-17) mg/dL Creatinine (0.52-1.04) mg/dL Estimated GFR (>60) mL/min BUN/Creatinine Ratio (6-22) Glucose (70-100) mg/dL Calcium (8.4-10.2) mg/dL Total Bilirubin (0.2-1.3) mg/dL AST (14-36) IU/L ALT (<35) IU/L Alkaline Phosphatase (38-126) U/L Total Protein (6.3-8.2) g/dL Albumin (3.5-5.0) g/dL Globulin (1.7-4.1) g/dL Albumin/Globulin Ratio (1.0-2.8) Urine RBC 10-30/hpf H (0-5/HPF) Urine WBC 10-30/hpf H (0-5/HPF) Ur Squamous Epith Cells 0-1 /hpf (0-5/HPF) Urine Bacteria None seen (None) Urine Mucus 1+ H (Negative) Ur Culture Indicated? Specimen cultured Blood Type Antibody Screen Urine Dip Bedside Urine Glucose Negative Bedside Urine Bilirubin - Negative Bedside Urine Ketone - Negative Urine Specific [place] 1.015 Bedside Urine Occult Blood +++ Bedside Urine pH 6.0 Bedside Urine Protein + 30 Bedside Urine Leukocytes + 70 Esterase MDM Narrative Medical decision making narrative: 46-year-old woman 10 days postop laparoscopic vaginal hysterectomy, oophorectomy and LEEP procedure. She is having some minor bleeding from the cervix. Monsel's is applied without complication and the bleeding is controlled. Anticipated course of resolution as well as discharge from the Monsel's was reviewed with patient. She is safe for home discharge and will follow up with her previously scheduled postoperative appointment. Discharge Plan Departure Patient Disposition: Home Clinical Impression: Post-op bleeding Activity Restrictions/Additional Instructions: Thank you for coming in today As your cervix is healing from the LEEP procedure the scab can sometimes fall off and you can have pinpoint areas of bleeding. This is in fact what is causing your mild vaginal spotting. This is fairly normal. In the emergency department we applied some Monsel's solution to the small pinpoint areas of bleeding with good blood control. Please expect some light discharge similar to what you would see on the final day of menstrual cycle. You will also see the Monsel's solution which often looks like black tarry flex. This is normal and your body will continue to heal perfectly. If you find that you are getting worse or develop any new symptoms, please feel free to return to the emergency department for further evaluation. Prescriptions: No Action dextroamphetamine-amphetamine [Adderall XR] 20 mg capsule,extended release 24hr 20 mg PO DAILY Qty: 90 0RF zolpidem [Ambien] 10 mg tablet 10 mg PO BEDTIME PRN (Reason: insomnia) Qty: 30 0RF bupropion HCl 150 mg tablet extended release 24 hr 300 mg PO QAM oxycodone 5 mg tablet 5 mg PO Q4H PRN (Reason: pain) Qty: 20 0RF Referrals: Héctor Rodriguez DO [Primary Care Provider] - Visit Report Forms: Patient Portal/API
[2021-11-12] MEDS: SODIUM CHLORIDE 0.9% 1,000 ML 1000 ML IV (17:14)
[2021-11-12 17:43] LABS: Bacteria Urine None Seen; Mucus Urine 1+ (Negative); RBC Urine 10-30/HPF (0-5/HPF); Squamous Epithelial Cell Urine 0-1 /HPF (0-5/HPF); WBC Urine 10-30/HPF (0-5/HPF)
[2021-11-12 17:45] LABS: Culture Indicated Urine Specimen Cultured
--- NOTE | 2021-11-12 19:53 | PC.NURSE ---
pt states she is no longer bleeding. requesting to be discharged and will follow up with her neptali
[2021-11-12 20:34] VITALS: BP 123/81; PULSE 72; RESP 20
== END 2021-11-12 20:36 | disposition home or self-care (01) ==
PROVIDERS: Emergency Provider Emergency Medicine; PCP Family Medicine
DX: N99.821 Postprocedural hemorrhage of a genitourinary system organ or structure following other procedure (principal); Z90.710 Acquired absence of both cervix and uterus
CPT/HCPCS: 74177; 80053; 81003; 81015; 85025; 86850; 86900; 86901; 87086; 93005; 93010; 96361; 96374; 99283; 99284; J2405; Q9967

== ENCOUNTER → 2021-12-19 15:41 | Outpatient (CLI) | payer OTHER, SELFPAY ==
[2021-12-19 17:36] LABS: Follicle Stimulating Hormone 15.7 mIU/mL
[2021-12-19 17:40] LABS: Free T4, Direct Thyroxine 1.39 ng/dL (0.78-2.19)
[2021-12-19 17:54] LABS: Thyroid Stimulating Hormone 1.34 uIU/mL (0.47-4.68)
[2021-12-20 19:49] LABS: Estradiol, Total 45.1 pg/mL
== END ==
PROVIDERS: PCP Family Medicine; Referring Provider Obstetrics & Gynecology; Visit Provider Obstetrics & Gynecology
DX: R68.89 Other general symptoms and signs (principal); E78.5 Hyperlipidemia, unspecified
CPT/HCPCS: 36415; 82670; 83001; 84439; 84443

== ENCOUNTER → 2022-10-13 14:19 | Outpatient (CLI) | payer OTHER, SELFPAY ==
--- NOTE | 2022-10-13 14:20 | DI.MG.S_ITS ---
BILATERAL DIGITAL SCREENING MAMMOGRAM 3D/2D WITH CAD WITH AUGMENTATION: 10/13/2022 CLINICAL: Patient presents for routine screening. S/P bilateral augmentation. Comparison is made to exams dated: 09/28/2021 mammogram, 01/13/2020 mammogram, and 05/16/2018 mammogram - [facility]. Both breasts are extremely dense, which lowers the sensitivity of mammography (category d />75% glandular tissue). Current study was also evaluated with a Computer Aided Detection (CAD) system. Bilateral breast implants are stable and intact. No significant masses, calcifications, or other findings are seen in either breast. There has been no significant interval change. IMPRESSION: NEGATIVE There is no mammographic evidence of malignancy. A 1 year screening mammogram is recommended. Consider supplemental MRI screening. Based on Tyrer-Cuzick model (a risk assessment model), the patient's lifetime risk is 20.8% and her 10 year risk is 4.4%. If a patient has an elevated risk, a more comprehensive evaluation should be considered and/or a referral to a genetic counselor. The [place] [employer], [employer], and NCCN Guidelines advise the consideration of Breast MRI as an adjunct to screening mammography in patients whose Lifetime risk to develop breast cancer is 20% or higher. This exam was interpreted at Station ID: [id number]. NOTE: For mammograms, a report in lay terms will be sent to the patient. Approximately 15% of breast malignancies will not be visualized mammographically. In the management of a palpable breast mass, a negative mammogram must not discourage biopsy of a clinically suspicious lesion. Electronically Signed By: Phu Melgar M.D. lc/:10/13/2022 14:54:38 letter sent: Normal Exam ACR BI-RADS Category 1: Negative 3341F
== END ==
PROVIDERS: PCP Family Medicine; Referring Provider Family Medicine; Visit Provider Family Medicine
DX: Z12.31 Encounter for screening mammogram for malignant neoplasm of breast (principal); Z98.82 Breast implant status
CPT/HCPCS: 77063; 77067

== ENCOUNTER → 2023-08-24 08:37 | Outpatient (CLI) | payer OTHER, SELFPAY ==
[2023-08-24 09:50] LABS: Add Manual Diff / Slide Review NO; Basophils Absolute Auto 0 /uL (0-100); Basophils Percent Auto 0.5 % (0-2); Eosinophils Absolute Auto 200 /uL (0-450); Eosinophils Percent Auto 3.6 % (2-4); Hematocrit 37.8 % (36-46); Hemoglobin 13.1 g/dL (12.0-16.0); Lymphocytes Absolute Auto 1800 /uL (1100-4500); Lymphocytes Percent Auto 29.2 % (25-40); Mean Corpuscular HGB Conc 34.5 % (30-36); Mean Corpuscular Hemoglobin 33.5 PG (26-34); Monocytes Absolute Auto 500 /uL (0-900); Monocytes Percent Auto 8.7 % (3-14); Neutrophils Absolute Auto 3600 /uL (1500-7000); Platelet Count 319 X10^3/uL (150-400); Red Cell Distribution Width 13.2 % (11.6-14.8); White Blood Cell Count 6.2 X10^3/uL (4.5-11.0)
[2023-08-24 10:18] LABS: Alanine Aminotransferase 11 IU/L (<35); Albumin 4.4 g/dL (3.5-5.0); Albumin Globulin Ratio 1.8 (1.0-2.8); Alkaline Phosphatase 66 U/L (38-126); Aspartate Aminotransferase 20 IU/L (14-36); BUN Creatinine Ratio 17.6 (6-22); Bilirubin Total 0.7 mg/dL (0.2-1.3); Blood Urea Nitrogen 13 mg/dL (7-17); Calcium 8.9 mg/dL (8.4-10.2); Carbon Dioxide 24 mmol/L (22-32); Chloride 106 mmol/L (98-107); Cholesterol 224 mg/dL (140-199); Estimated Glomerular Filt Rate > 60 mL/min (>60); Globulin 2.4 g/dL (1.7-4.1); Glucose 88 mg/dL (70-100); HDL Cholesterol 94 mg/dL (40-60); HEMOLYSIS < 15 (0-50); LDL Cholesterol Calculated 119 mg/dL (<100); Potassium 4.3 mmol/L (3.4-5.1); Sodium 138 mmol/L (137-145); Total Protein 6.8 g/dL (6.3-8.2); Triglycerides 53 mg/dL (35-150)
[2023-08-24 10:36] LABS: TSH w/ Reflex to FT4 1.07 uIU/mL (0.47-4.68)
== END ==
PROVIDERS: PCP Family Medicine; Referring Provider Family Medicine; Visit Provider Family Medicine
DX: E78.5 Hyperlipidemia, unspecified (principal); F32.5 Major depressive disorder, single episode, in full remission; F90.9 Attention-deficit hyperactivity disorder, unspecified type
CPT/HCPCS: 36415; 80053; 80061; 84443; 85025

== ENCOUNTER → 2023-10-30 16:46 | Outpatient (CLI) | payer OTHER, SELFPAY ==
--- NOTE | 2023-10-30 16:47 | DI.MG.S_ITS ---
BILATERAL DIGITAL SCREENING MAMMOGRAM 3D/2D WITH CAD WITH AUGMENTATION: 10/30/2023 CLINICAL: Routine screening. Comparison is made to exams dated: 10/13/2022 mammogram, 09/28/2021 mammogram, 01/13/2020 mammogram, 05/16/2018 mammogram - [facility], and 10/01/2015 mammogram - [facility]. Both breasts are extremely dense, which lowers the sensitivity of mammography (category d />75% glandular tissue). Current study was also evaluated with a Computer Aided Detection (CAD) system. Bilateral breast implants are stable and intact. No significant masses, calcifications, or other findings are seen in either breast. There has been no significant interval change. IMPRESSION: NEGATIVE There is no mammographic evidence of malignancy. A 1 year screening mammogram is recommended. Based on Tyrer-Cuzick model (a risk assessment model), the patient's lifetime risk is 20.9% and her 10 year risk is 4.6%. If a patient has an elevated risk, a more comprehensive evaluation should be considered and/or a referral to a genetic counselor. The [place] [employer], [employer], and NCCN Guidelines advise the consideration of Breast MRI as an adjunct to screening mammography in patients whose Lifetime risk to develop breast cancer is 20% or higher. This exam was interpreted at Station ID: [id number]. NOTE: For mammograms, a report in lay terms will be sent to the patient. Approximately 15% of breast malignancies will not be visualized mammographically. In the management of a palpable breast mass, a negative mammogram must not discourage biopsy of a clinically suspicious lesion. Electronically Signed By: Jean-Pierre joshi/stephan:10/31/2023 08:13:01 letter sent: Normal Exam ACR BI-RADS Category 1: Negative 3341F
== END ==
PROVIDERS: PCP Family Medicine; Referring Provider Family Medicine; Visit Provider Family Medicine
DX: Z12.31 Encounter for screening mammogram for malignant neoplasm of breast (principal); R92.343 Mammographic extreme density, bilateral breasts
CPT/HCPCS: 77063; 77067

== ENCOUNTER → 2024-01-14 18:53 | Outpatient (CLI) | payer OTHER, SELFPAY ==
--- NOTE | 2024-01-14 18:55 | DI.MRI.S_ITS ---
PROCEDURE: MR LUMBAR SPINE WO CON INDICATIONS: LUMBAR PAIN,LEFT HIP/LEG PAIN W WEAKNESS TECHNIQUE: Noncontrast sagittal T1 spin echo and T2 fast echo, sagittal STIR, and T2 fast spin echo through the lumbar spine. In cases with scoliosis, additional coronal T2 fast spin echo may be performed. COMPARISON: None. FINDINGS: Image quality: Excellent. Alignment and Curvature: There is mild straightening of normal lumbar lordosis. No significant spondylolisthesis. Bone Marrow: Marrow is of normal overall signal. No acute vertebral body compression fractures. Spinal Cord: Conus medullaris terminates at the L1 level. Visualized cord demonstrates normal signal and size. Paraspinous Soft Tissues: No paravertebral masses. T12-L1: Normal appearance. L1-L2: Normal appearance. L2-L3: Disc desiccation is seen. No significant disc bulge, canal stenosis or neural foraminal narrowing. L3-L4: There is disc desiccation. Mild broad-based disc bulge is seen with bilateral facet arthrosis. No significant canal stenosis or neural foraminal narrowing. L4-L5: There is disc desiccation. Broad-based disc bulge and bilateral facet arthrosis with hypertrophy of ligamentum flavum causing mild central canal stenosis, moderate left-sided neural foraminal narrowing and [id number] right-sided neural foraminal narrowing. Bulging disc likely contacting bilateral exiting L4 nerve roots. L5-S1: There is disc desiccation. Diffuse disc bulge and bilateral facet arthrosis. No significant central canal stenosis. Mild bilateral neural foraminal narrowing is seen. Bulging disc likely contacting bilateral L5 nerve roots. IMPRESSION: 1. Mild degenerative disc disease in mid to lower lumbar spine causing various degrees of central canal stenosis and bilateral neural foraminal narrowing as described above. 2. No marrow edema. No acute compression fracture or significant spondylolisthesis. Dictated by: Edmundo Chris M.D. on 01/15/2024 at 10:26 Approved by: Edmundo Chris M.D. on 01/15/2024 at 10:28
== END ==
LOC: MRI 18:53
PROVIDERS: PCP Family Medicine; Referring Provider Chiropractor; Visit Provider Chiropractor
DX: M99.13 Subluxation complex (vertebral) of lumbar region (principal); M54.51 Vertebrogenic low back pain; M43.17 Spondylolisthesis, lumbosacral region; M51.17 Intervertebral disc disorders with radiculopathy, lumbosacral region; M51.16 Intervertebral disc disorders with radiculopathy, lumbar region; M47.27 Other spondylosis with radiculopathy, lumbosacral region; M47.26 Other spondylosis with radiculopathy, lumbar region; M48.07 Spinal stenosis, lumbosacral region; M48.061 Spinal stenosis, lumbar region without neurogenic claudication
CPT/HCPCS: 72148

== ENCOUNTER 2024-03-19 07:17 | Day surgery (SDC) | payer OTHER, SELFPAY ==
[2024-03-19 08:07] VITALS: BP 112/75; PULSE 81; RESP 17; TEMP 37.1; O2SAT 96
--- NOTE | 2024-03-19 08:23 | PM.HP.1 ---
History of Present Illness History of Present Illness Date Patient Seen: 03/19/24 Time Patient Seen: 08:23 Chief complaint: SDC Narrative: 49-year-old white female presents for initial screening colonoscopy. No changes in bowel habits. [facility] Medical History (Updated 03/19/24 @ 08:25 by Elder Donaldson MD) Colon cancer screening Bacterial vaginosis Hyperlipidemia Surgical History History of appendectomy Social History household members: significant other Smoking Status: Never smoker alcohol intake: current Meds Home Medications and Allergies Home Medications Medication Instructions Recorded Confirmed Type CMP-Progesterone 1 tab PO BEDTIME #90 caps 02/07/23 03/19/24 Rx metronidazole 0.75 % (37.5 mg/5 1 appful vaginal BEDTIME 5 days 11/22/23 11/22/23 Rx gram) vaginal gel #70 grams nortriptyline 25 mg capsule 25 mg PO BEDTIME sleep #90 caps 11/22/23 03/19/24 Rx bupropion HCl 150 mg 24 hr tablet, 150 mg PO QAM #90 tabs 01/24/24 03/19/24 Rx extended release CMP- BIEST 1:1 0.25 mg topical DAILY #23 mL 03/14/24 03/19/24 Rx dextroamphetamine-amphetamine 20 20 mg PO DAILY 90 days #90 tabs 03/17/24 03/19/24 Rx mg tablet (Adderall) lorazepam 0.5 mg tablet 0.5 mg PO BEDTIME PRN sleep #30 03/17/24 03/19/24 Rx tabs Allergies Allergy/AdvReac Type Severity Reaction Status Date / Time No Known Drug Allergies Allergy Verified 03/19/24 08:16 Review of Systems Review of Systems ROS: Yes All systems reviewed with the patient and are negative except as otherwise documented Exam Vital Signs (past 8 hours): - 03/19/24 08:07 Temperature 98.7 F Pulse Rate 81 Respiratory Rate 17 Blood Pressure 112/75 Pulse Oximetry 96 Oxygen Delivery Method Room Air Oxygen Delivery Method Room Air Narrative Exam Narrative: Gen: NAD, sitting comfortably in bed, appears well HEENT: Sclera are anicteric, head is normocephalic and atraumatic, trachea is midline. CV: RRR, no JVD Resp: clear to auscultation bilaterally, equal chest wall movement bilaterally Abd: soft, nontender, normoactive bowel sounds Ext: no edema, full range of motion Neuro: Cranial nerves II-XII grossly intact, no focal deficits Skin: No erythema or ecchymosis Assessment & Plan Assessment and plan (1) Colon cancer screening: Status: Acute Assessment & Plan narrative: Patient presents for initial screening colonoscopy Risks, benefits, alternatives to colonoscopy explained, including but not limited to bowel perforation or other serious complication requiring surgery at less than 1 in 5000 colonoscopies, abdominal pain, cramping or bleeding and less than 1% of colonoscopies, and the chances that we find a diagnosis that would require further intervention of about 2%. Patient agrees to proceed. Time-Based Coding :: [TOTAL MINUTES] spent with patient and on the chart (including review of chart, obtaining history, exam, reviewing outside data, placing orders, documenting exam and treatment plan, and counseling patient) on [DATE].
--- NOTE | 2024-03-19 08:55 | PM.OP.COLON ---
Operative Date/Time/Diagnoses Date of procedure: 03/19/24 Time of procedure: 08:55 Pre-op diagnosis: Colon screening Post-op diagnosis: same Procedure & Clinicians Study performed: Colonoscopy Same procedure as scheduled: Yes Indications: Screening Surgeon: Elder Donaldson Procedure Notes SCOAP/Timeout: Performed Procedure in detail: Time-out was performed. Mac was induced. Patient was placed in left lateral decubitus position. The perineum was inspected without any gross abnormality. Lubricated pediatric colonoscope was inserted and advanced to the cecum. The terminal ileum was intubated. The colonoscope was withdrawn slowly inspecting the circumference of the colon. There were small few pancolonic diverticulosis. Very small polyps may have been missed, prep quality was adequate. Retroflexed view of the rectum showed small, non prolapsed nonbleeding internal hemorrhoids. The scope was withdrawn the patient was taken to PACU in good condition. Scope withdrawal time: 6 Sedation minutes: 13 Findings: divertiulosis Specimen(s): none sent Complications: none Impression: Diverticulosis Post-procedure Recommendations: Colonoscopy in 10 years Plan for aftercare: home Follow up: as needed Disposition: PACU
[2024-03-19 08:58] VITALS: BP 110/76; PULSE 78; RESP 19; TEMP 36.2; O2SAT 98
[2024-03-19 09:06] VITALS: BP 107/85; PULSE 85; RESP 16; TEMP 36.2; O2SAT 98
[2024-03-19 09:14] VITALS: BP 116/79; PULSE 78; RESP 15; TEMP 36.3; O2SAT 98
== END 2024-03-19 09:30 | disposition home or self-care (01) ==
PROVIDERS: PCP Family Medicine; Referring Provider Surgery; Visit Provider Surgery
PROC: 0DJD8ZZ Inspection of Lower Intestinal Tract, Via Natural or Artificial Opening Endoscopic (ICD-10-PCS; CPT 45378; principal; 2024-03-19 08:30)
DX: Z12.11 Encounter for screening for malignant neoplasm of colon (principal); K57.30 Diverticulosis of large intestine without perforation or abscess without bleeding
CPT/HCPCS: 45378; J2704

== ENCOUNTER → 2024-10-30 15:37 | Outpatient (CLI) | payer OTHER, SELFPAY ==
--- NOTE | 2024-10-30 15:37 | DI.MG.S_ITS ---
MM screening mammo implant BI: 10/30/2024. BI-RADS: 2 CLINICAL: 49-year old female for bilateral screening mammogram. Tyrer-Cuzick lifetime risk of 10.3%. No personal or first-degree family history of breast cancer. The patient has bilateral implants. PRIOR EXAMS 10/30/2023, 10/13/2022, 09/28/2021, 01/13/2020, MAMMOGRAPHY TECHNIQUE: 2D and 3D (tomosynthesis) digital mammographic views obtained, with additional images as needed for full coverage. Current study was also evaluated with a Computer Aided Detection (CAD) system. DENSITY C. The breasts are heterogeneously dense, which may obscure small masses. IMPLANTS Breast implants present. MAMMOGRAPHY FINDINGS Bilateral: There are no suspicious masses, calcifications, or other findings in the breast. IMPRESSION: * No evidence of malignancy with benign findings. RECOMMENDATIONS Bilateral * Annual screening mammography. OVERALL ASSESSMENT CATEGORY BI-RADS-2: Benign. [employer] recommends annual screening mammography beginning at age 40 for women with average risk of breast cancer. ELECTRONICALLY SIGNED: Vonda Richardson M.D. on 11/04/2024 at 02:53:03 AM PT Interpreting Station ID: [id number]
== END ==
LOC: MAMMO 15:37
PROVIDERS: PCP Family Medicine; Referring Provider Family Medicine; Visit Provider Family Medicine
DX: Z12.31 Encounter for screening mammogram for malignant neoplasm of breast (principal); Z98.82 Breast implant status
CPT/HCPCS: 77063; 77067

== ENCOUNTER → 2025-02-05 16:04 | Outpatient (CLI) | payer OTHER, SELFPAY ==
--- NOTE | 2025-02-05 16:05 | DI.RAD.S_ITS ---
PROCEDURE: XR KNEE LT 3V
--- NOTE | 2025-02-05 16:05 | DI.RAD.S_ITS ---
PROCEDURE: XR KNEE RT 3V
== END ==
PROVIDERS: PCP Family Medicine; Referring Provider Family Medicine; Visit Provider Family Medicine
DX: M17.12 Unilateral primary osteoarthritis, left knee (principal); M22.8X1 Other disorders of patella, right knee; M25.569 Pain in unspecified knee
CPT/HCPCS: 73562

== ENCOUNTER → 2025-02-25 13:22 | Outpatient (CLI) | payer OTHER, SELFPAY ==
--- NOTE | 2025-02-25 13:23 | DI.RAD.S_ITS ---
PROCEDURE: XR ELBOW RT MIN 3V INDICATIONS: screening TECHNIQUE: 3 views of the elbow were acquired. COMPARISON: None. FINDINGS/IMPRESSION: No elbow effusion. Mild posterior olecranon soft tissue swelling versus olecranon bursitis. No acute fracture or dislocation. Joint spaces are well maintained. Dictated by: Celia March M.D. on 02/25/2025 at 16:08 Approved by: Celia March M.D. on 02/25/2025 at 16:11
== END ==
PROVIDERS: PCP Family Medicine; Referring Provider Family Medicine; Visit Provider Family Medicine
DX: M25.529 Pain in unspecified elbow (principal)
CPT/HCPCS: 73080

== ENCOUNTER → 2025-03-06 18:54 | Outpatient (CLI) | payer OTHER, SELFPAY ==
--- NOTE | 2025-03-06 18:59 | DI.MRI.S_ITS ---
PROCEDURE: MR KNEE RT WO CON INDICATIONS: right knee meniscal tear with some instability TECHNIQUE: Noncontrast sagittal PD fast spin echo and T2 fast spin echo with fat saturation, sagittal 3-D FLASH with fat saturation; coronal T1 spin echo and PD fast spin echo with fat saturation, and axial PD fast spin echo with fat saturation through the knee. COMPARISON: [facility], CR, XR KNEE RT 3V, 02/05/2025, 16:13. FINDINGS: Image quality: Excellent. Anterior cruciate ligament: Intact. Posterior cruciate ligament: Intact. Medial collateral ligament: Intact. Lateral collateral ligament: Intact. Medial meniscus: Intact. Lateral meniscus: Chronic horizontal oblique tearing at the anterior horn of the lateral meniscus extending to the femoral articular surface with superimposed degeneration. 5 mm parameniscal cyst. Medial and lateral tendons: The semimembranosus tendon insertions appear intact. Visualized portions of the pes anserinus tendons appear normal. The popliteus tendon is intact. Iliotibial band appears normal. Anterior structures: The quadriceps and patellar tendons appear intact. Congenitally shallow trochlear groove is seen with lateral patellar tilting and mild lateral patellar subluxation. The tibial tubercle-trochlear groove distance is within normal limits. Mild edema at the superolateral aspect of the infrapatellar fat pad. Postsurgical changes from medial patellofemoral ligament repair. The ligament appears attenuated near the femoral attachment and recurrent partial tearing is not excluded. Bones: Postsurgical changes are seen at the medial femoral epicondyle and medial patella. No acute trabecular bone injury. No suspicious osseous lesion. Medial femorotibial cartilage: Mild partial-thickness cartilage thinning in the weight-bearing portion of the medial femorotibial compartment. Lateral femorotibial cartilage: Small full-thickness cartilage defect at the posterior weight-bearing portion of the lateral femoral condyle measuring 2 x 3 mm superimposed on background grade 2 chondromalacia. Patellofemoral cartilage: High-grade partial-thickness cartilage loss is seen at the lateral patellar facet. There is grade 2 chondromalacia in the median ridge of the patella and in the femoral trochlea. Soft tissues: Moderate joint effusion. Trace medial popliteal cyst. Visualized musculature is age-appropriate in bulk. IMPRESSION: 1. Postsurgical changes from medial patellofemoral ligament repair or reconstruction. Suspected recurrent chronic partial tearing of the ligament near the femoral attachment. 2. 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 Tibial tubercle-trochlear groove distance is within normal limits. 3. Mild edema is seen at the superolateral aspect of the infrapatellar fat pad, which can be seen in the setting of lateral femoral condyle-patellar tendon friction syndrome. 4. Chronic degenerative tearing at the anterior horn of the lateral meniscus. 5. 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 Focal full- thickness cartilage defect measuring up to 3 mm at the lateral femoral condyle superimposed on grade 2 chondromalacia. Mild grade 2 chondromalacia in the medial femorotibial compartment. 6. Moderate joint effusion. Approved by: Loc Estrada M.D. on 03/09/2025 at 9:26
== END ==
LOC: MRI 18:58
PROVIDERS: PCP Family Medicine; Referring Provider Family Medicine; Visit Provider Family Medicine
DX: M23.241 Derangement of anterior horn of lateral meniscus due to old tear or injury, right knee (principal); S83.011A Lateral subluxation of right patella, initial encounter; M25.561 Pain in right knee; M22.41 Chondromalacia patellae, right knee; M25.461 Effusion, right knee; R60.0 Localized edema
CPT/HCPCS: 73721